=== PATIENT | female | born 1990 | race American Indian/Alaskan Native ===

== ENCOUNTER 2020-01-07 16:56 | Outpatient (CLI) | payer BC ==
[2020-01-07] MEDS ORDERED: LACTATED RINGERS 1,000 ML IV ONE (19:26)
[2020-01-07 19:54] LABS: Amphetamine Screen,Urine PRESUMPTIVE NEGATIVE; Benzodiazepines Screen,Urine PRESUMPTIVE NEGATIVE; Cannabinoid Screen,Urine PRESUMPTIVE NEGATIVE; Cocaine Screen,Urine PRESUMPTIVE NEGATIVE; Methadone Screen,Urine PRESUMPTIVE NEGATIVE; Opiate Screen,Urine PRESUMPTIVE NEGATIVE
[2020-01-07 19:57] VITALS: BP 125/69
[2020-01-07] MEDS ORDERED: ACETAMINOPHEN 500 MG TAB PO ONE (20:16)
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
== END 2020-01-07 22:45 | disposition home or self-care (01) ==
LOC: TRG 16:56 → LD 16:59 → TRG 22:45
PROVIDERS: ATTEND Obstetrics & Gynecology
DX: O47.03 False labor before 37 completed weeks of gestation, third trimester (principal); Z3A.28 28 weeks gestation of pregnancy
CPT/HCPCS: 76815; 76819; 80307; 96360; J7120